=== PATIENT | male | born 1950 | race Asian ===

== ENCOUNTER 2019-08-03 09:47 | Emergency (ER) | payer SELFPAY ==
[~2019-08-03] VITALS: Ht 170.2 cm; Wt 55.8 kg
[2019-08-03 09:52] VITALS: Ht 170.2 cm; Wt 55.8 kg
[2019-08-03 11:41] VITALS: BP 182/98
== END 2019-08-03 11:42 | disposition home or self-care (01) ==
LOC: ED 09:47
DX: B02.9 Zoster without complications (principal)

== ENCOUNTER 2019-08-09 09:07 | Emergency (ER) | payer SELFPAY ==
[~2019-08-09] VITALS: Ht 160 cm; Wt 56.2 kg
[2019-08-09 09:13] VITALS: BP 190/95
== END 2019-08-09 10:34 | disposition home or self-care (01) ==
LOC: ED 09:07
DX: B02.29 Other postherpetic nervous system involvement (principal)